=== PATIENT | male | born 1960 | race Caucasian/White ===

== ENCOUNTER → 2022-09-11 | Outpatient (REF) | payer BC | LOC: M LAB REF 16:00 | PROVIDERS: ATTEND Internal Medicine | DX: R68.82 Decreased libido (principal); N52.9 Male erectile dysfunction, unspecified; R53.83 Other fatigue ==

== ENCOUNTER 2023-01-05 01:45 | Emergency (ER) | payer SELFPAY ==
[~2023-01-05] VITALS: Ht 185.4 cm; Wt 89.0 kg
[2023-01-05] MEDS ORDERED: NITROGLYCERIN 0.4MG SUBL TABLET As Ordered ONE (03:16)
[2023-01-05] MEDS ORDERED: ONDANSETRON 4MG 2ML VIAL IV ONE (03:30)
[2023-01-05] MEDS ORDERED: MORPHINE 4 MG/ML 1ML VIAL IV ONE (03:30)
[2023-01-05] MEDS ORDERED: ONDANSETRON 4MG 2ML VIAL As Ordered ONE (03:38)
[2023-01-05] MEDS ORDERED: MORPHINE 4 MG/ML 1ML VIAL As Ordered ONE (03:38)
[2023-01-05] MEDS ORDERED: ISOVUE-370 76% 100ML VIAL As Ordered ONE (04:16)
[2023-01-05 04:34] LABS: BASO # 0.1 10^3/uL (0.0-0.2); BASO % 0.7 % (0.0-1.0); EOS # 0.3 10^3/uL (0.0-0.5); HEMATOCRIT 46.1 % (42.0-52.0); HEMOGLOBIN 15.9 g/dl (13.5-17.5); LYMPH # 1.7 10^3/uL (1.5-5.0); LYMPH % 23.7 % (24.0-44.0); MEAN CORPUSCULAR HGB CONC 34.5 g/dl (32.0-36.5); MEAN CORPUSCULAR VOLUME 89.9 fl (80.0-96.0); MONO # 0.9 10^3/uL (0.0-0.8); MONO % 12.1 % (2.0-8.0); NEUTROPHILS # 4.3 10^3/uL (1.5-8.5); NEUTROPHILS % 58.7 % (36.0-66.0); PLATELET COUNT, AUTOMATED 144 10^3/uL (150-450); RED BLOOD COUNT 5.13 10^6/uL (4.30-6.10); WHITE BLOOD COUNT 7.3 10^3/uL (4.0-10.0)
[2023-01-05 04:39] LABS: BLOOD UREA NITROGEN 23 MG/DL (9-23); CALCIUM LEVEL 9.8 MG/DL (8.3-10.6); CARBON DIOXIDE LEVEL 28 MMOL/L (20-31); CHLORIDE LEVEL 105 MMOL/L (98-107); CK-MB VALUE MASS 7.8 NG/ML (<3.6); CPK CREATINE PHOSPHOKINASE 279 U/L (46-171); CREATININE FOR GFR 0.94 MG/DL (0.70-1.30); GLOMERULAR FILTRATION RATE > 60.0 (>49); GLUCOSE, FASTING 120 MG/DL (74-106); MB/CK RELATIVE INDEX 2.79 (< OR =4); POTASSIUM SERUM 4.4 MMOL/L (3.5-5.1); SODIUM LEVEL 140 MMOL/L (136-145)
[2023-01-05 04:47] LABS: CK-MB VALUE MASS 8.7 NG/ML (<3.6)
[2023-01-05 05:01] LABS: MB/CK RELATIVE INDEX 3.37 (< OR =4)
[2023-01-05 06:36] LABS: CK-MB VALUE MASS 20.7 NG/ML (<3.6)
[2023-01-05] MEDS: NITROGLYCERIN 0.4MG SUBL TABLET SL PRN ×2 (06:43→06:56)
[2023-01-05 06:46] LABS: MB/CK RELATIVE INDEX 7.28 (< OR =4)
[2023-01-05] MEDS ORDERED: NITROGLYCERIN 2% OINT 1 GM *U/D* PKT TOP ONE (06:50)
[2023-01-05 06:55] VITALS: BP 154/90
[2023-01-05 07:34] LABS: INR 0.92; PROTHROMBIN TIME 12.6 SECONDS (12.5-14.5)
[2023-01-05 07:35] LABS: PARTIAL THROMBOPLASTIN TIME 27.5 SECONDS (24.8-34.2)
[2023-01-05] MEDS ORDERED: MORPHINE 2 MG/ML 1ML VIAL IV PRN (08:05)
[2023-01-05] MEDS ORDERED: NITROGLYCERIN/D5W 100MCG/ML 25 MG in IV 1 EA IV SCH (08:05)
[2023-01-05] MEDS ORDERED: HEPARIN SOD (PORCINE) 5000UNITS/ML 1ML VIAL/SYRINGE IV ONE (08:05)
[2023-01-05] MEDS ORDERED: HEPARIN DRIP 25,000 UNITS in IV 1 EA IV SCH (08:05)
[2023-01-05 09:02] VITALS: BP 154/98; TEMP 97.9; O2SAT 97
== END 2023-01-05 09:21 | disposition short-term general hospital (02) ==
LOC: M ED 01:45
DX: I21.4 Non-ST elevation (NSTEMI) myocardial infarction (principal); I25.10 Atherosclerotic heart disease of native coronary artery without angina pectoris; E78.5 Hyperlipidemia, unspecified; Z95.5 Presence of coronary angioplasty implant and graft
CPT/HCPCS: 71045; 71275; 80048; 82550; 82553; 84484; 85025; 85610; 85730; 87635; 93005; 96365; 96367; 96375; 96376; 99285; Q9967

== ENCOUNTER 2023-07-25 10:09 | Emergency (ER) | payer MEDICARE ==
[~2023-07-25] VITALS: Ht 185.4 cm; Wt 109.1 kg
[2023-07-25 10:30] VITALS: TEMP 96.1
[2023-07-25] MEDS ORDERED: ONDANSETRON 4MG 2ML VIAL IV ONE (10:50)
[2023-07-25] MEDS ORDERED: propofoL 200 MG/20 ML VIAL IV.PROC PRN (10:50)
[2023-07-25] MEDS ORDERED: NS 1,000 ML IV SCH (10:50)
[2023-07-25] MEDS ORDERED: KETAMINE HCL 200MG/20ML VIAL IV ONE (10:50)
[2023-07-25] MEDS: MORPHINE 2 MG/ML 1ML VIAL IV PRN ×2 (11:01→11:46)
[2023-07-25] MEDS ORDERED: KETOROLAC 30 MG/ML 1ML VIAL IV ONE (11:30)
[2023-07-25] MEDS ORDERED: diazePAM 10MG/2ML SYRINGE IV ONE (11:55)
[2023-07-25 12:30] VITALS: BP 153/109; O2SAT 93
[2023-07-25] MEDS ORDERED: PERC5TAB12 PO (12:59)
== END 2023-07-25 13:30 | disposition home or self-care (01) ==
LOC: M ED 10:09 → EDBD 10:09 → M ED 13:30
DX: S43.005A Unspecified dislocation of left shoulder joint, initial encounter (principal); W55.22XA Struck by cow, initial encounter; Y92.009 Unspecified place in unspecified non-institutional (private) residence as the place of occurrence of the external cause; Y93.89 Activity, other specified; Y99.8 Other external cause status; I25.10 Atherosclerotic heart disease of native coronary artery without angina pectoris; E78.5 Hyperlipidemia, unspecified; I25.2 Old myocardial infarction
CPT/HCPCS: 23650; 73020; 73030; 93041; 94760; 96365; 96366; 96375; 99284; J1885; J2405; J3360

== ENCOUNTER → 2023-08-19 | Outpatient (CLI) | payer MEDICARE ==
[~2023-08-19] MED LIST: PERC5TAB12 PO
== END ==
LOC: M PLAIMG 10:51
PROVIDERS: ATTEND Orthopaedic Surgery
DX: M25.512 Pain in left shoulder (principal); M25.412 Effusion, left shoulder; M75.122 Complete rotator cuff tear or rupture of left shoulder, not specified as traumatic

== ENCOUNTER → 2023-10-02 | Outpatient (CLI) | payer MEDICARE | LOC: M RAD 14:30 | PROVIDERS: ATTEND Orthopaedic Surgery | DX: M75.121 Complete rotator cuff tear or rupture of right shoulder, not specified as traumatic (principal); M25.411 Effusion, right shoulder; M25.511 Pain in right shoulder ==